=== PATIENT | male | born 1990 | race Caucasian/White ===

== ENCOUNTER 2016-11-11 19:05 | Emergency (ER) | payer SELFPAY ==
[2016-11-11] MEDS ORDERED: HYDROCODONE/ACETAMINOPHEN 5/325MG TABLET ONE (20:54)
[2016-11-11] MEDS ORDERED: IBUPROFEN 600 MG TABLET ONE (20:54)
[2016-11-11 20:56] LABS: URINE BILIRUBIN NEGATIVE (NEGATIVE); URINE BLOOD NEGATIVE (NEGATIVE); URINE GLUCOSE (UA) NEGATIVE (NEGATIVE); URINE LEUKOCYTE ESTERASE NEGATIVE (NEGATIVE); URINE NITRITE NEGATIVE (NEGATIVE); URINE PROTEIN NEGATIVE (NEGATIVE); URINE UROBILINOGEN NORMAL (0-1 mg/dl)
[2016-11-11] MEDS ORDERED: CEFTRIAXONE SODIUM 250 MG VIAL ONE (20:56)
[2016-11-11 20:59] LABS: URINE APPEARANCE CLEAR; URINE COLOR YELLOW
[2016-11-11] MEDS ORDERED: DOXYCYCLINE HYCLATE 100 MG TABLET ONE (21:22)
[2016-11-11] MEDS ORDERED: AMOX 875 MG/CLAV 125 MG 1 EACH TABLET ONE (21:22)
--- NOTE | 2016-11-12 07:51 | US ---
SCROTUM CONTENTS COMPARISON: Scrotal ultrasound, 05/24/2016 HISTORY: 26 years old. Right swollen and painful testicle for 2 to 3 days. No trauma. FINDINGS: Right testicle: 4.8 x 2.3 x 3.1 cm. Normal echogenicity and blood flow. Right epididymis: At the head, 19 x 13 x 12 mm, enlarged, and hypervascular. Right varicocele: None Right hydrocele: Moderate Left testicle: 4.8 x 2.0 x 2.7 cm. Normal echogenicity and blood flow. Left epididymis: At the head, 12 x 7 x 10 mm. 3 mm cyst. Normal blood flow. Left varicocele: None Left hydrocele: None IMPRESSION: Right epididymitis. Preliminary report by [facility] radiologist Ranjit Valdez M.D. 11/11/2016 at 22:17
[2016-11-13 15:32] LABS: CHLAMYDIA BD Negative (Negative); N.GONORRHOEAE BD Negative (Negative); SOURCE Urine (())
== END 2016-11-11 22:46 | disposition home or self-care (01) ==
LOC: ED 19:05
DX: N45.1 Epididymitis (principal); J45.909 Unspecified asthma, uncomplicated; F17.210 Nicotine dependence, cigarettes, uncomplicated
CPT/HCPCS: 87491; 87591; 81003; 76870; 99284; 96372; 99283; A9270 ×4; J0696